=== PATIENT | male | born 1980 | race Hispanic/Latino ===

== ENCOUNTER 2019-12-27 00:18 | Inpatient (IN) | payer MEDICARE, OTHER ==
[~2019-12-27] VITALS: Ht 180.3 cm; Wt 79.6 kg
[2019-12-27 01:22] LABS: APPEARANCE,URINE Clear (CLEAR); BILIRUBIN,URINE Small (NEGATIVE); COLOR,URINE Dark Yellow (YELLOW); GLUCOSE, URINE (UA) Negative (NEGATIVE); KETONES,URINE Trace mg/dL (NEGATIVE); LEUKOCYTE ESTERASE ,URINE Small (NEGATIVE); NITRATE,URINE Negative (NEGATIVE); OCCULT BLOOD,URINE Negative (NEGATIVE); PROTEIN,URINE Trace mg/dL (NEGATIVE)
[2019-12-27 01:30] LABS: AMPHET/METH SCREEN,URINE POSITIVE (NEGATIVE); BARBITURATE SCREEN, URINE NEGATIVE (NEGATIVE); BENZODIAZEPINES SCREEN,URINE NEGATIVE (NEGATIVE); CANNABINOID SCREEN,URINE POSITIVE (NEGATIVE); COCAINE SCREEN,URINE POSITIVE (NEGATIVE); OPIATE SCREEN,URINE NEGATIVE (NEGATIVE); PHENCYCLIDINE SCREEN,URINE NEGATIVE (NEGATIVE)
[2019-12-27 01:55] LABS: BACTERIA,URINE None Seen /HPF (None Seen); MUCUS,URINE Rare LPF (None Seen); SQUAMOUS EPITHELIAL CELL,UR Rare /HPF (0-2)
[2019-12-27 02:43] LABS: BASOPHILS % (AUTO) 0.5 % (0.0-5.0); EOSINOPHILS % (AUTO) 1.9 % (0.0-8.0); LYMPHOCYTES % (AUTO) 37.2 % (21.0-51.0); MEAN CORPUSCULAR HGB CONC 34.9 g/dL (32.0-36.0); MEAN CORPUSCULAR VOLUME 91.7 fL (79-99); MONOCYTES % (AUTO) 6.1 % (3.0-13.0); NEUTROPHILS % (AUTO) 54.2 % (40.0-77.0); PLATELET COUNT (AUTO) 336 K/uL (130-400); RED BLOOD CELL COUNT(AUTO) 4.47 MIL/uL (4.50-6.20); RED CELL DISTRIBUTION WIDTH 11.6 % (11.0-15.5); WHITE BLOOD COUNT (AUTO) 7.3 K/uL (4.8-10.8)
[2019-12-27 03:02] LABS: CARBON DIOXIDE 26 mmol/L (21-32); CHLORIDE 103 mmol/L (101-111); CREATININE 1.3 mg/dL (0.5-1.5); GLOMERULAR FILTR. RATE CALC 65 mL/min (>60); GLUCOSE,RANDOM 100 mg/dL (70-105); POTASSIUM 4.2 mmol/L (3.5-5.1); SODIUM SERUM 139 mmol/L (136-145); UREA NITROGEN, BLOOD 16 mg/dL (7-18)
[2019-12-27 03:14] LABS: ALANINE AMINOTRANSFERASE 31 U/L (12-78); ALBUMIN 4.2 g/dL (3.5-5.0); ASPARTATE AMINOTRANSFERASE 32 U/L (10-37); BILIRUBIN,TOTAL 0.9 mg/dL (0.2-1.0); TOTAL PROTEIN, SERUM 7.5 g/dL (6.0-8.3)
[2019-12-27 03:15] LABS: ACETAMINOPHEN < 1 mcg/mL (10-29); ALCOHOL, BLOOD < 3 mg/dL (0-10); SALICYLATE < 2.8 mg/dL (2.8-20.0)
[2019-12-27] MEDS ORDERED: ONDANSETRON ODT 4 MG TAB ONE (05:21)
[2019-12-27] MEDS ORDERED: MORPHINE SULFATE 4 MG/1ML SYG ONE (05:22)
[2019-12-27] MEDS ORDERED: TETANUS/DIPHTHERIA TOXOID [ADULT] 0.5 ML VIAL IM ONE (06:44)
[2019-12-27] MEDS ORDERED: CEFAZOLIN SODIUM 1 GM VIAL ONE ×2 (06:58→13:57)
[2019-12-27] MEDS ORDERED: SODIUM CHLORIDE 0.9% 50 ML IV ONE (06:59)
[2019-12-27] MEDS ORDERED: LIDOCAINE 1%-EPI 1:100,000 20 ML VIAL IJ ONE (07:25)
[2019-12-27] MEDS ORDERED: LIDOCAINE HCL 1% 20 ML VIAL ONE (07:25)
[2019-12-27] MEDS ORDERED: HYDRALAZINE HCL 20 MG/ML VIAL IV PRN (09:00)
[2019-12-27] MEDS ORDERED: ONDANSETRON HCL 4 MG/2 ML VIAL IV PRN (09:00)
[2019-12-27] MEDS ORDERED: ACETAMINOPHEN 325 MG TAB PO PRN ×2 (09:00)
[2019-12-27] MEDS ORDERED: CEFAZOLIN SODIUM 1 GM VIAL IVP SCH (09:00)
[2019-12-27] MEDS: FAMOTIDINE/PF 20 MG/2 ML VIAL IV SCH ×2 (09:00→22:10)
[2019-12-27] MEDS ORDERED: DiphenhydrAMINE HCL 50 MG/ML VIAL ONE (09:33)
[2019-12-27] MEDS ORDERED: HALOPERIDOL LACTATE 5 MG/ML VIAL ONE (09:33)
[2019-12-27] MEDS ORDERED: LORAZEPAM 2 MG/ML 1 ML VIAL ONE (09:34)
[2019-12-27] MEDS ORDERED: SODIUM CHLORIDE 0.9% 100 ML IV ONE (13:57)
--- NOTE | 2019-12-27 18:41 | NUR ---
ADMISSION PATIENT ARRIVED ON FLOOR AT [facility] 1645 HOURS. PATIENT VERY LETHARGIC. PATIENT UNABLE TO STAY AWAKE LONG ENOUGH TO ANSWER ANY QUESTIONS AT THIS TIME. PHOTOS WERE TAKEN OF THE INJURIES TO RIGHT EYE AND SIDE OF FACE ALONG WITH RIGHT SHOULDER. PATIENT DID STATE HE DID NOT HAVE ANY HOME MEDICATIONS.
[2019-12-27 19:00] VITALS: BP 115/66
[2019-12-27] MEDS: CEFAZOLIN SODIUM 1 GM VIAL IVP SCH (22:10)
[2019-12-27 23:00] VITALS: BP 116/76
[2019-12-28 03:00] VITALS: BP 92/60
[2019-12-28] MEDS: CEFAZOLIN SODIUM 1 GM VIAL IVP SCH ×3 (05:47→18:12)
[2019-12-28 06:15] LABS: BASOPHILS % (AUTO) 0.6 % (0.0-5.0); EOSINOPHILS % (AUTO) 2.4 % (0.0-8.0); HEMATOCRIT 38.9 % (42-54); LYMPHOCYTES % (AUTO) 35.1 % (21.0-51.0); MEAN CORPUSCULAR HEMOGLOBIN 31.7 pg (27.0-33.0); MEAN CORPUSCULAR HGB CONC 34.2 g/dL (32.0-36.0); MEAN CORPUSCULAR VOLUME 92.8 fL (79-99); MONOCYTES % (AUTO) 7.1 % (3.0-13.0); NEUTROPHILS % (AUTO) 54.6 % (40.0-77.0); PLATELET COUNT (AUTO) 283 K/uL (130-400); RED BLOOD CELL COUNT(AUTO) 4.19 MIL/uL (4.50-6.20); RED CELL DISTRIBUTION WIDTH 11.3 % (11.0-15.5); WHITE BLOOD COUNT (AUTO) 9.1 K/uL (4.8-10.8)
[2019-12-28 06:42] LABS: CREATININE 1.3 mg/dL (0.5-1.5); POTASSIUM 3.7 mmol/L (3.5-5.1)
[2019-12-28 07:33] VITALS: BP 129/65
[2019-12-28] MEDS: FAMOTIDINE/PF 20 MG/2 ML VIAL IV SCH ×2 (09:26→20:52)
--- NOTE | 2019-12-28 09:30 | NUR ---
DR BLOUNT/CONSULT CALLED DR HAQUE REGARDING CONSULTATION- STATED HE IS ALREADY AWARE AND WILL SEE PT
[2019-12-28 11:23] VITALS: BP 121/71
[2019-12-28] MEDS ORDERED: CHLORDIAZEPOXIDE HCL 25 MG CAP PO PRN ×2 (14:00)
[2019-12-28] MEDS ORDERED: PHARMACY COMMUNICATION MISC PRN (14:00)
[2019-12-28] MEDS ORDERED: LORAZEPAM 2 MG/ML 1 ML VIAL IVP PRN (14:00)
--- NOTE | 2019-12-28 14:18 | NUR ---
DCP CM met with pt currently under custody of Alessia HUMPHREY, guard in room, discussed dcp. Pt is independent prior to admission, lives at home alone, friend Toke lives close by as per pt. Denies any equipments/services. DC plan possibly w/custody, vs home/psych facility. Pending psych eval once medically clear. CM to cont to follow up. Addendum: 12/28/19 at 1420 by ARPAN BALTAZAR LVN CM Amended: Links added.
[2019-12-28] MEDS ORDERED: COMPOUND IV REFRIGERATED 1 EACH IVSOLN MISC PRN ×2 (14:30→15:00)
[2019-12-28] MEDS: THIAMINE HCL 100 MG, FOLIC ACID 1 MG, M.V.I. IV [ADULT] 10 ML in SODIUM CHLORIDE 0.9% 1... IV SCH (15:18)
[2019-12-28 16:00] VITALS: BP 112/83
--- NOTE | 2019-12-28 16:05 | NUR ---
[facility] CONSULT PATIENT ASSESSED REQUESTED: PATIENT DOES NOT PRESENT WITH ANY OPEN WOUNDS AT THIS TIME. Addendum: 12/28/19 at 1607 by DONNA OBANDO LVN Amended: Links added.
--- NOTE | 2019-12-28 16:16 | NUR ---
CUSTODY/OFFICER PER [employer] RE[employer]E/CURRENT OFFICER IN ROOM- HE WILL BE "STEPPING OUT" THEY HAVE OTHER PEOPLE IN CUSTODY IN HOSPITAL TO ATTEND TO. PER MR MACDONALD PT IS NOT IN CUSTODY BUT SHOULD HE ATTEMPT TO LEAVE OR BE DISCHARGED- [facility] SHOULD BE CONTACTED IMMEDIATEY. THIS NURSE INFORMED OFFICER THAT SHOULD PT WANT TO LEAVE- WE CANNOT HOLD HIM BACK. HE HAS THE RIGHT TO SINCE HE IS NO LONGER IN CUSTODY. OFFICER THEN STATED "THAT IS FINE JUST GIVE US A CALL". JAYSHREE RAZA RN PRESENT AND MADE AWARE.
[2019-12-28 19:00] VITALS: BP 104/59
[2019-12-28] MEDS: RISPERIDONE 1 MG TABLET PO SCH (20:52)
[2019-12-28 23:00] VITALS: BP 122/64
[2019-12-29 03:00] VITALS: BP 116/71
[2019-12-29] MEDS: CEFAZOLIN SODIUM 1 GM VIAL IVP SCH ×3 (03:35→17:54)
[2019-12-29 06:30] LABS: BASOPHILS % (AUTO) 0.6 % (0.0-5.0); EOSINOPHILS % (AUTO) 3.4 % (0.0-8.0); HEMATOCRIT 36.6 % (42-54); LYMPHOCYTES % (AUTO) 43.7 % (21.0-51.0); MEAN CORPUSCULAR HGB CONC 34.7 g/dL (32.0-36.0); MEAN CORPUSCULAR VOLUME 92.2 fL (79-99); MONOCYTES % (AUTO) 8.8 % (3.0-13.0); NEUTROPHILS % (AUTO) 43.4 % (40.0-77.0); PLATELET COUNT (AUTO) 293 K/uL (130-400); RED BLOOD CELL COUNT(AUTO) 3.97 MIL/uL (4.50-6.20); RED CELL DISTRIBUTION WIDTH 11.5 % (11.0-15.5); WHITE BLOOD COUNT (AUTO) 7.8 K/uL (4.8-10.8)
[2019-12-29 06:38] LABS: CREATININE 1.1 mg/dL (0.5-1.5); POTASSIUM 3.7 mmol/L (3.5-5.1)
[2019-12-29 07:38] VITALS: BP 120/73
[2019-12-29 08:36] LABS: INR 0.92 (0.85-1.15)
[2019-12-29] MEDS: FOLIC ACID 1 MG TABLET PO SCH (09:00)
[2019-12-29] MEDS: THIAMINE HCL 100 MG/ML 2ML VIAL IV SCH (09:00)
[2019-12-29] MEDS: RISPERIDONE 1 MG TABLET PO SCH ×3 (09:00→20:22)
[2019-12-29] MEDS: FAMOTIDINE/PF 20 MG/2 ML VIAL IV SCH ×2 (09:57→20:21)
[2019-12-29 10:37] VITALS: BP 112/69
--- NOTE | 2019-12-29 11:51 | NUR ---
Substance Abuse On 12/28/2019, VINCE met with patient to discuss hx of poly substance abuse. Patient was positive for Benzodiazepine, THC, and cocaine. Patient states he takes medication for anxiety but could not remember the name of the medication. Patient states that is why is he positive for Benzodiazepines. He does admit to using cocaine and marijuana but states he does not remember when he started to use or how much he uses. Patient was short on answers due to police patrol officer being in room. Patient was provided with local resources for substance abuse counseling. Patient states he has tried to seek counseling in the past but has not completed process. He states he was going to try once again to seek help with [facility] for his substance abuse.
[2019-12-29] MEDS: THIAMINE HCL 100 MG, FOLIC ACID 1 MG, M.V.I. IV [ADULT] 10 ML in SODIUM CHLORIDE 0.9% 1... IV SCH (14:57)
[2019-12-29 16:07] VITALS: BP 113/77
--- NOTE | 2019-12-29 17:00 | NUR ---
PT BELONGINGS PER [employer] IN SECURITY-PT HAS NO BELONGINGS WITH THEM AND THEY ARE LIKELY WITH POLICE HE WAS IN CUSTODY. PT MADE AWARE
--- NOTE | 2019-12-29 18:35 | NUR ---
DR HAQUE STATED HE WILL TAKE PT TO SURGERY TONIGHT AROUND 8-8:30. PT MADE AWARE AND VERBALIZED UNDERSTANDING
[2019-12-29 19:00] VITALS: BP 119/82
[2019-12-29] MEDS: LORAZEPAM 2 MG/ML 1 ML VIAL IVP PRN (20:25)
[2019-12-29 23:00] VITALS: BP 121/58
[2019-12-30] VITALS (24 sets, daily range): BP systolic 99–137; BP diastolic 57–81
[2019-12-30] MEDS: CEFAZOLIN SODIUM 1 GM VIAL IVP SCH ×3 (03:56→19:11)
[2019-12-30 05:27] LABS: BASOPHILS % (AUTO) 0.4 % (0.0-5.0); EOSINOPHILS % (AUTO) 2.2 % (0.0-8.0); HEMATOCRIT 38.2 % (42-54); LYMPHOCYTES % (AUTO) 37.3 % (21.0-51.0); MEAN CORPUSCULAR HEMOGLOBIN 31.7 pg (27.0-33.0); MEAN CORPUSCULAR HGB CONC 34.6 g/dL (32.0-36.0); MEAN CORPUSCULAR VOLUME 91.8 fL (79-99); MONOCYTES % (AUTO) 7.3 % (3.0-13.0); NEUTROPHILS % (AUTO) 52.4 % (40.0-77.0); PLATELET COUNT (AUTO) 301 K/uL (130-400); RED BLOOD CELL COUNT(AUTO) 4.16 MIL/uL (4.50-6.20); RED CELL DISTRIBUTION WIDTH 11.4 % (11.0-15.5); WHITE BLOOD COUNT (AUTO) 7.6 K/uL (4.8-10.8)
[2019-12-30 05:32] LABS: POTASSIUM 3.8 mmol/L (3.5-5.1)
[2019-12-30] MEDS: RISPERIDONE 1 MG TABLET PO SCH ×3 (09:00→19:59)
[2019-12-30] MEDS: FOLIC ACID 1 MG TABLET PO SCH (09:00)
[2019-12-30] MEDS: FAMOTIDINE/PF 20 MG/2 ML VIAL IV SCH ×2 (10:48→19:53)
[2019-12-30] MEDS: THIAMINE HCL 100 MG/ML 2ML VIAL IV SCH (10:49)
[2019-12-30] MEDS ORDERED: DEXAMETHASONE SOD PHOSPHATE 10MG/ML 1ML VIAL ONE (16:10)
[2019-12-30] MEDS ORDERED: NEOSTIGMINE 5MG/5ML SYR IV ONE (16:10)
[2019-12-30] MEDS ORDERED: LIDOCAINE PF 2% 5ML ABBOJECT ONE (16:10)
[2019-12-30] MEDS ORDERED: FENTANYL CITRATE PF 50 MCG/1 ML 2ML VIAL ONE ×3 (16:10→18:23)
[2019-12-30] MEDS ORDERED: PROPOFOL 10 MG/ML 20ML VIAL IV ONE (16:10)
[2019-12-30] MEDS ORDERED: ONDANSETRON HCL 4 MG/2 ML VIAL ONE ×2 (16:10→17:04)
[2019-12-30] MEDS ORDERED: GLYCOPYRROLATE 1 MG/5 ML SYRINGE ONE (16:10)
[2019-12-30] MEDS ORDERED: ROCURONIUM 10MG/1ML SYR 10 MG/ML ML ONE (16:11)
[2019-12-30] MEDS ORDERED: MIDAZOLAM HCL 1 MG/ML 2ML VIAL ONE ×2 (16:11→17:02)
[2019-12-30] MEDS ORDERED: CEFAZOLIN SODIUM 1 GM VIAL ONE (17:10)
--- NOTE | 2019-12-30 18:30 | NUR ---
S/P ORIF: PT IS AWAKE ALERT AND ORIENTED. VITALS STABLE. PT IS IN NO APPARENT DISTRESS. IN BED SIDE RAILS UP X2, BED LOCKED AND LOW WITH CALL LIGHT IN REACH. WILL CONTINUE TO MONITOR.
[2019-12-30] MEDS ORDERED: BUPIVACAINE/PF 0.5% 30ML VIAL ONE (18:50)
[2019-12-30] MEDS: MORPHINE SULFATE 2 MG/ML 1ML SYG IV PRN (19:52)
[2019-12-30] MEDS: THIAMINE HCL 100 MG, FOLIC ACID 1 MG, M.V.I. IV [ADULT] 10 ML in SODIUM CHLORIDE 0.9% 1... IV SCH (19:53)
[2019-12-31] MEDS: LORAZEPAM 2 MG/ML 1 ML VIAL IVP PRN (00:43)
[2019-12-31 03:40] VITALS: BP 96/67
[2019-12-31] MEDS: CEFAZOLIN SODIUM 1 GM VIAL IVP SCH ×2 (04:31→11:57)
[2019-12-31] MEDS: MORPHINE SULFATE 2 MG/ML 1ML SYG IV PRN (06:49)
[2019-12-31 07:31] VITALS: BP 108/59
[2019-12-31] MEDS: FAMOTIDINE/PF 20 MG/2 ML VIAL IV SCH (08:51)
[2019-12-31] MEDS: THIAMINE HCL 100 MG/ML 2ML VIAL IV SCH (08:51)
[2019-12-31] MEDS: FOLIC ACID 1 MG TABLET PO SCH (08:52)
[2019-12-31] MEDS: RISPERIDONE 1 MG TABLET PO SCH (08:52)
[2019-12-31] MEDS ORDERED: MULTIVITAMIN TABLET PO SCH (09:00)
[2019-12-31 10:55] VITALS: BP 103/60
[2019-12-31] MEDS ORDERED: LORAZEPAM 1 MG TABLET PO SCH (12:15)
--- NOTE | 2019-12-31 12:20 | NUR ---
CALLED SANDIP HUMPHREY TO NOTIFY THAT PT WAS READY TO BE DISCHARGED. NO ANSWER, LEFT A MESSAGE FOR [employer] RENAE.
== END 2019-12-31 13:30 | disposition home or self-care (01) | DRG 113 ==
LOC: EDH 00:18 → EEVIPCON 06:54 → EDHIP 06:54 → 3CH 17:48
PROVIDERS: ADMIT Internal Medicine; ATTEND Internal Medicine
PROC: 0NSP04Z Reposition Right Orbit with Internal Fixation Device, Open Approach (ICD-10-PCS; principal; 2019-12-30 17:14)
DX: S02.31XA Fracture of orbital floor, right side, initial encounter for closed fracture (principal); S02.40EA Zygomatic fracture, right side, initial encounter for closed fracture; S02.40CA Maxillary fracture, right side, initial encounter for closed fracture; R45.851 Suicidal ideations; F15.10 Other stimulant abuse, uncomplicated; R45.850 Homicidal ideations; F43.10 Post-traumatic stress disorder, unspecified; F14.10 Cocaine abuse, uncomplicated; W18.30XA Fall on same level, unspecified, initial encounter
CPT/HCPCS: 36415; 70450; 70486; 71045; 72125; 73030; 80048; 80053; 80305; 81001; 85025; 85610; 86701; 87390; 90714; 93005; G0378; G0480; G0481; J0690; J1100; J1200; J1630; J2001; J2060; J2250; J2270; J2405; J2704; J2710; J3010; J3411; J3490; J7030

== ENCOUNTER 2022-06-13 16:24 | Emergency (ER) | payer OTHER ==
[~2022-06-13] VITALS: Ht 185.4 cm; Wt 95.3 kg
[2022-06-13 16:50] LABS: BASOPHILS % (AUTO) 0.3 % (0.0-5.0); EOSINOPHILS % (AUTO) 2.3 % (0.0-8.0); HEMATOCRIT 43.7 % (42-54); LYMPHOCYTES % (AUTO) 41.1 % (21.0-51.0); MEAN CORPUSCULAR HEMOGLOBIN 31.8 pg (27.0-33.0); MEAN CORPUSCULAR HGB CONC 35.5 g/dL (32.0-36.0); MEAN CORPUSCULAR VOLUME 89.7 fL (79-99); MONOCYTES % (AUTO) 7.7 % (3.0-13.0); PLATELET COUNT (AUTO) 318 K/uL (130-400); RED BLOOD CELL COUNT(AUTO) 4.87 MIL/uL (4.50-6.20); RED CELL DISTRIBUTION WIDTH 12.4 % (11.0-15.5); WHITE BLOOD COUNT (AUTO) 6.9 K/uL (4.8-10.8)
[2022-06-13 17:01] LABS: CARBON DIOXIDE 31 mmol/L (21-32); CHLORIDE 104 mmol/L (101-111); CREATININE 1.1 mg/dL (0.5-1.5); GLOMERULAR FILTR. RATE CALC 78 mL/min (>60); GLUCOSE,RANDOM 102 mg/dL (70-105); POTASSIUM 4.4 mmol/L (3.5-5.1); SODIUM SERUM 143 mmol/L (136-145); UREA NITROGEN, BLOOD 16 mg/dL (7-18)
[2022-06-13 17:06] LABS: ALANINE AMINOTRANSFERASE 37 U/L (12-78); ALBUMIN 4.5 g/dL (3.5-5.0); ALCOHOL, BLOOD < 3 mg/dL (0-10); ASPARTATE AMINOTRANSFERASE 22 U/L (10-37); CREATINE KINASE, TOTAL 159 U/L (21-232); TOTAL PROTEIN, SERUM 8.3 g/dL (6.0-8.3)
[2022-06-13 17:07] LABS: ACETAMINOPHEN < 1 mcg/mL (10-29); SALICYLATE < 2.8 mg/dL (2.8-20.0)
[2022-06-13 17:10] LABS: APPEARANCE,URINE CLEAR (CLEAR); BILIRUBIN,URINE NEGATIVE (NEGATIVE); COLOR,URINE YELLOW (YELLOW); GLUCOSE, URINE (UA) NEGATIVE (NEGATIVE); KETONES,URINE NEGATIVE (NEGATIVE); LEUKOCYTE ESTERASE ,URINE NEGATIVE (NEGATIVE); NITRATE,URINE NEGATIVE (NEGATIVE); OCCULT BLOOD,URINE NEGATIVE (NEGATIVE); PROTEIN,URINE NEGATIVE (NEGATIVE); UROBILINOGEN,URINE 0.2 mg/dL (0.2-1.0)
[2022-06-13 17:18] LABS: AMPHET/METH SCREEN,URINE NEGATIVE (NEGATIVE); BARBITURATE SCREEN, URINE NEGATIVE (NEGATIVE); BENZODIAZEPINES SCREEN,URINE NEGATIVE (NEGATIVE); CANNABINOID SCREEN,URINE POSITIVE (NEGATIVE); COCAINE SCREEN,URINE NEGATIVE (NEGATIVE); PHENCYCLIDINE SCREEN,URINE NEGATIVE (NEGATIVE)
[2022-06-13 20:33] VITALS: BP 126/75
== END 2022-06-13 20:48 | disposition home or self-care (01) ==
LOC: EDH 16:24
DX: U07.1 COVID-19 (principal); F41.9 Anxiety disorder, unspecified; Z91.14 Patient's other noncompliance with medication regimen
CPT/HCPCS: 99283; 87635; 82550; 80053; 80305; 85025; 81003; 36415; G0481; C9803

== ENCOUNTER 2022-11-01 14:51 | Emergency (ER) | payer MEDICARE, OTHER ==
[~2022-11-01] VITALS: Ht 182.9 cm; Wt 96.2 kg
[2022-11-01 16:38] LABS: BASOPHILS % (AUTO) 0.5 % (0.0-5.0); EOSINOPHILS % (AUTO) 4.4 % (0.0-8.0); HEMATOCRIT 39.9 % (42-54); LYMPHOCYTES % (AUTO) 40.3 % (21.0-51.0); MEAN CORPUSCULAR HEMOGLOBIN 32.1 pg (27.0-33.0); MEAN CORPUSCULAR HGB CONC 34.6 g/dL (32.0-36.0); MEAN CORPUSCULAR VOLUME 92.8 fL (79-99); NEUTROPHILS % (AUTO) 47.5 % (40.0-77.0); PLATELET COUNT (AUTO) 258 K/uL (130-400); RED CELL DISTRIBUTION WIDTH 12.1 % (11.0-15.5); WHITE BLOOD COUNT (AUTO) 7.3 K/uL (4.8-10.8)
[2022-11-01 16:42] LABS: APPEARANCE,URINE CLEAR (CLEAR); BILIRUBIN,URINE NEGATIVE (NEGATIVE); COLOR,URINE LIGHT-YELLOW (YELLOW); GLUCOSE, URINE (UA) NEGATIVE (NEGATIVE); KETONES,URINE NEGATIVE (NEGATIVE); LEUKOCYTE ESTERASE ,URINE NEGATIVE Leu/uL (NEGATIVE); NITRATE,URINE NEGATIVE (NEGATIVE); OCCULT BLOOD,URINE NEGATIVE (NEGATIVE); PH,URINE 5.5 (5.0-8.0); PROTEIN,URINE NEGATIVE (NEGATIVE); UROBILINOGEN,URINE 0.2 mg/dL (0.2-1.0)
[2022-11-01 16:44] LABS: WBC,URINE 0-1 /HPF (0-1)
[2022-11-01 16:47] LABS: CARBON DIOXIDE 29 mmol/L (21-32); CHLORIDE 103 mmol/L (101-111); CREATININE 1.1 mg/dL (0.5-1.5); GLOMERULAR FILTR. RATE CALC 77 mL/min (>60); GLUCOSE,RANDOM 105 mg/dL (70-105); POTASSIUM 4.2 mmol/L (3.5-5.1); SODIUM SERUM 139 mmol/L (136-145); UREA NITROGEN, BLOOD 14 mg/dL (7-18)
[2022-11-01 16:51] LABS: ALANINE AMINOTRANSFERASE 34 U/L (12-78); ALBUMIN 3.8 g/dL (3.5-5.0); ALCOHOL, BLOOD < 3 mg/dL (0-10); ASPARTATE AMINOTRANSFERASE 22 U/L (10-37); CREATINE KINASE, TOTAL 190 U/L (21-232)
[2022-11-01 17:02] LABS: ACETAMINOPHEN < 1 mcg/mL (10-29); SALICYLATE < 2.8 mg/dL (2.8-20.0)
[2022-11-01 17:33] LABS: AMPHET/METH SCREEN,URINE NEGATIVE (NEGATIVE); BARBITURATE SCREEN, URINE NEGATIVE (NEGATIVE); BENZODIAZEPINES SCREEN,URINE POSITIVE (NEGATIVE); CANNABINOID SCREEN,URINE POSITIVE (NEGATIVE); COCAINE SCREEN,URINE NEGATIVE (NEGATIVE); OPIATE SCREEN,URINE NEGATIVE (NEGATIVE); PHENCYCLIDINE SCREEN,URINE NEGATIVE (NEGATIVE)
[2022-11-01 19:16] VITALS: BP 125/80
== END 2022-11-01 19:22 | disposition home or self-care (01) ==
LOC: EDH 14:51
DX: F41.9 Anxiety disorder, unspecified (principal); F12.90 Cannabis use, unspecified, uncomplicated; F31.9 Bipolar disorder, unspecified; I10 Essential (primary) hypertension; Z79.899 Other long term (current) drug therapy
CPT/HCPCS: 82550; 80053; 80305; 85025; 81001; 36415; 99283; G0481

== ENCOUNTER 2022-11-06 11:03 | Emergency (ER) | payer MEDICARE ==
[~2022-11-06] VITALS: Ht 182.9 cm; Wt 96.2 kg
[2022-11-06 11:20] VITALS: BP 109/75
[2022-11-06] MEDS ORDERED: HYDR50CA50 PO (13:11)
== END 2022-11-06 13:31 | disposition home or self-care (01) ==
LOC: EDH 11:03
DX: F41.9 Anxiety disorder, unspecified (principal); G47.9 Sleep disorder, unspecified; F31.9 Bipolar disorder, unspecified; I10 Essential (primary) hypertension; Z98.890 Other specified postprocedural states

== ENCOUNTER 2022-11-11 11:27 | Observation (INO) | payer MEDICARE ==
[~2022-11-11] VITALS: Ht 182.9 cm; Wt 72.6 kg
[2022-11-11] VITALS: BP 103/68
[~2022-11-11 11:27] MED LIST: HYDR50CA50 PO
[2022-11-11 11:50] LABS: BASOPHILS % (AUTO) 0.6 % (0.0-5.0); EOSINOPHILS % (AUTO) 3.5 % (0.0-8.0); HEMATOCRIT 36.1 % (42-54); LYMPHOCYTES % (AUTO) 33.6 % (21.0-51.0); MEAN CORPUSCULAR HGB CONC 35.2 g/dL (32.0-36.0); MEAN CORPUSCULAR VOLUME 90.9 fL (79-99); MONOCYTES % (AUTO) 7.1 % (3.0-13.0); PLATELET COUNT (AUTO) 239 K/uL (130-400); RED BLOOD CELL COUNT(AUTO) 3.97 MIL/uL (4.50-6.20); RED CELL DISTRIBUTION WIDTH 12.4 % (11.0-15.5)
[2022-11-11 11:58] LABS: POTASSIUM 4.1 mmol/L (3.5-5.1)
[2022-11-11 12:03] LABS: ALBUMIN 3.6 g/dL (3.5-5.0); TOTAL PROTEIN, SERUM 6.9 g/dL (6.0-8.3)
[2022-11-11 12:14] LABS: APPEARANCE,URINE CLEAR (CLEAR); BILIRUBIN,URINE NEGATIVE (NEGATIVE); COLOR,URINE YELLOW (YELLOW); GLUCOSE, URINE (UA) NEGATIVE (NEGATIVE); KETONES,URINE NEGATIVE (NEGATIVE); LEUKOCYTE ESTERASE ,URINE NEGATIVE Leu/uL (NEGATIVE); NITRATE,URINE NEGATIVE (NEGATIVE); OCCULT BLOOD,URINE NEGATIVE (NEGATIVE); PROTEIN,URINE NEGATIVE (NEGATIVE); UROBILINOGEN,URINE 0.2 mg/dL (0.2-1.0)
[2022-11-11] MEDS ORDERED: MORPHINE 4 MG SYG IVP ONE (14:30)
[2022-11-11] MEDS ORDERED: ONDANSETRON 4MG INJ IVP ONE (14:30)
[2022-11-11] MEDS ORDERED: ASPIRIN 325MG TAB PO ONE (14:30)
[2022-11-11] MEDS ORDERED: 0.9%NACL 1000ML 1,000 ML IV ONE (14:30)
[2022-11-11 15:07] LABS: AMPHET/METH SCREEN,URINE NEGATIVE (NEGATIVE); BARBITURATE SCREEN, URINE NEGATIVE (NEGATIVE); BENZODIAZEPINES SCREEN,URINE POSITIVE (NEGATIVE); CANNABINOID SCREEN,URINE POSITIVE (NEGATIVE); COCAINE SCREEN,URINE NEGATIVE (NEGATIVE); OPIATE SCREEN,URINE NEGATIVE (NEGATIVE); PHENCYCLIDINE SCREEN,URINE NEGATIVE (NEGATIVE)
[2022-11-11] MEDS ORDERED: ONDANSETRON ODT 4MG TAB SL PRN (17:00)
[2022-11-11] MEDS ORDERED: ACETAMINOPHEN 325 MG TAB PO PRN (17:00)
[2022-11-11] MEDS ORDERED: DIAZ2TAB3 PO (18:10)
[2022-11-11] MEDS ORDERED: MULT-1203 PO (18:10)
[2022-11-11] MEDS ORDERED: TAMS-1 PO (18:10)
[2022-11-11] MEDS ORDERED: METO-408 PO (18:10)
[2022-11-11 20:00] VITALS: BP 129/87
[2022-11-11] MEDS ORDERED: MORPHINE 2 MG SYG ONE (23:41)
[2022-11-11] MEDS: MORPHINE 2 MG SYG IVP PRN (23:47)
[2022-11-12] VITALS: BP 103/68
[2022-11-12 02:03] LABS: BASOPHILS % (AUTO) 0.5 % (0.0-5.0); EOSINOPHILS % (AUTO) 4.5 % (0.0-8.0); MEAN CORPUSCULAR HEMOGLOBIN 31.7 pg (27.0-33.0); MEAN CORPUSCULAR HGB CONC 33.8 g/dL (32.0-36.0); MEAN CORPUSCULAR VOLUME 93.9 fL (79-99); MONOCYTES % (AUTO) 6.7 % (3.0-13.0); NEUTROPHILS % (AUTO) 51.1 % (40.0-77.0); PLATELET COUNT (AUTO) 203 K/uL (130-400); RED BLOOD CELL COUNT(AUTO) 3.94 MIL/uL (4.50-6.20); RED CELL DISTRIBUTION WIDTH 12.4 % (11.0-15.5); WHITE BLOOD COUNT (AUTO) 8.5 K/uL (4.8-10.8)
[2022-11-12 02:23] LABS: POTASSIUM 3.9 mmol/L (3.5-5.1)
[2022-11-12 02:27] LABS: ALBUMIN 3.3 g/dL (3.5-5.0); MAGNESIUM 1.9 mg/dL (1.80-2.40); TOTAL PROTEIN, SERUM 6.3 g/dL (6.0-8.3)
[2022-11-12 04:00] VITALS: BP_SYST 103; BP_SYST 129; BP_DIAS 53; BP_DIAS 80
[2022-11-12 08:00] VITALS: BP 124/83
[2022-11-12] MEDS: ENOXAPARIN SODIUM 30 MG/0.3 ML SQ SCH (08:57)
[2022-11-12] MEDS: ASPIRIN 81 MG EC TAB PO SCH (08:57)
[2022-11-12] MEDS: MORPHINE 2 MG SYG IVP PRN ×2 (10:51→21:51)
[2022-11-12 12:00] VITALS: BP 127/80
[2022-11-12 16:00] VITALS: BP 129/80
[2022-11-12 20:00] VITALS: BP 132/91
[2022-11-13] VITALS (7 sets, daily range): BP systolic 105–137; BP diastolic 66–85
[2022-11-13] MEDS: ASPIRIN 81 MG EC TAB PO SCH (09:00)
[2022-11-13] MEDS: ENOXAPARIN SODIUM 30 MG/0.3 ML SQ SCH (09:00)
[2022-11-13] MEDS ORDERED: REGADENOSON 0.4 MG/5 ML PF SYG IVP SCH (09:30)
[2022-11-13] MEDS ORDERED: IOHEXOL-350 50ML VIAL IV ONE (10:30)
[2022-11-13 11:51] LABS: HEMATOCRIT 40.7 % (42-54); MEAN CORPUSCULAR HEMOGLOBIN 31.7 pg (27.0-33.0); MEAN CORPUSCULAR HGB CONC 34.4 g/dL (32.0-36.0); MEAN CORPUSCULAR VOLUME 92.1 fL (79-99); RED BLOOD CELL COUNT(AUTO) 4.42 MIL/uL (4.50-6.20); RED CELL DISTRIBUTION WIDTH 12.4 % (11.0-15.5)
[2022-11-13 12:04] LABS: MAGNESIUM 1.9 mg/dL (1.80-2.40); PHOSPHORUS 3.9 mg/dL (2.5-4.9); POTASSIUM 3.8 mmol/L (3.5-5.1)
[2022-11-13] MEDS ORDERED: HYDROXYZINE 25 MG TABLET PO PRN (12:30)
[2022-11-13] MEDS ORDERED: METOPROLOL TARTRATE 25 MG TAB ONE (12:54)
[2022-11-13] MEDS: MORPHINE 2 MG SYG IVP PRN ×2 (12:55→21:55)
[2022-11-13] MEDS ORDERED: METOPROLOL SUCCINATE 25 MG TAB.SR.24H PO ONE (12:57)
[2022-11-13] MEDS ORDERED: METOPROLOL SUCCINATE 25 MG TAB.SR.24H PO SCH (13:30)
[2022-11-13] MEDS: DIAZEPAM 2 MG TAB PO SCH ×2 (14:17→21:52)
[2022-11-13] MEDS ORDERED: TAMSULOSIN HCL 0.4 MG CAP.ER.24H PO SCH (21:00)
[2022-11-14] VITALS: BP 103/62
[2022-11-14 04:00] VITALS: BP 110/70
[2022-11-14 08:00] VITALS: BP 122/92
[2022-11-14] MEDS ORDERED: MULTIVITAMIN TABLET PO SCH (09:00)
[2022-11-14] MEDS ORDERED: METOPROLOL SUCCINATE 25 MG TAB.SR.24H PO SCH (09:00)
[2022-11-14] MEDS: ENOXAPARIN SODIUM 30 MG/0.3 ML SQ SCH ×2 (09:00→09:26)
[2022-11-14] MEDS: ASPIRIN 81 MG EC TAB PO SCH (09:25)
[2022-11-14] MEDS: DIAZEPAM 2 MG TAB PO SCH ×2 (09:25→14:20)
[2022-11-14 12:00] VITALS: BP 126/80
== END 2022-11-14 15:40 | disposition home or self-care (01) ==
LOC: EDH 11:27 → EDHIP 15:57 → 4CH 17:39
PROVIDERS: ADMIT Internal Medicine Infectious Disease; ATTEND Internal Medicine Infectious Disease
DX: R07.89 Other chest pain (principal); I10 Essential (primary) hypertension; F19.10 Other psychoactive substance abuse, uncomplicated; F31.9 Bipolar disorder, unspecified; F41.9 Anxiety disorder, unspecified; F43.10 Post-traumatic stress disorder, unspecified; K76.0 Fatty (change of) liver, not elsewhere classified; N40.0 Benign prostatic hyperplasia without lower urinary tract symptoms; R79.89 Other specified abnormal findings of blood chemistry; Z79.899 Other long term (current) drug therapy; Z98.890 Other specified postprocedural states
CPT/HCPCS: 96374; 96376 ×3; 96375; 99285; 82550 ×4; 83874 ×3; 84484 ×4; 80053 ×2; 83880; 80305; 83690; 85025 ×2; 85378; 81003; 36415 ×3; 71045; 76700; 93005 ×2; 96372; 83735 ×2; 80061; 71260; 84100; 80048; 85027; 93017; 78452; 93306; 93356; J7030; J2405; J2270; G0378 ×51; J1650; J2785; Q9967; A9500 ×2